=== PATIENT | female | born 1985 | race Caucasian/White ===

== ENCOUNTER 2017-12-10 21:53 | Emergency (ER) | payer OTHER ==
[~2017-12-10] VITALS: Ht 172.7 cm; Wt 74.8 kg
[~2017-12-10 21:53] MED LIST: ALLEGRA30 MG; BIRTH CONTROL; CELEXA; LOPRESSOR25 PO; NORCO 5-325 TA1 EACH PO; PENICILLIN V P500 MG PO
[2017-12-10 22:16] LABS: ABSOLUTE BASOPHILS 0.1 thou/uL (0.0-0.2); ABSOLUTE EOSINOPHILS 0.1 thou/uL (0.0-0.7); ABSOLUTE MONOCYTES 1.1 thou/uL (0.0-1.2); ABSOLUTE NEUTROPHILS 6.7 thou/uL (1.6-8.1); BASOPHILS 0.6 %; HEMATOCRIT 40.8 % (37.0-47.0); HEMOGLOBIN 13.8 gm/dL (12.0-15.0); LYMPHOCYTES 27.3 %; MCH 27.8 pg (26.0-34.0); MCHC 33.7 g/dL (28.0-37.0); MCV 82.4 fL (80.0-100.0); MONOCYTES 9.8 %; MPV 10.8 fl. (7.2-11.1); NUCLEATED RBCS 0 /100WBC; PLATELET COUNT* 264 thou/uL (150-400); POLYS 61.3 %; RBC 4.95 mil/uL (4.20-5.00); RDW-CV 13.5 % (10.5-14.5); WBC 10.9 thou/uL (4.0-11.0)
[2017-12-10 22:24] LABS: ANION GAP 8 mmol/L (7-16); BUN 15 mg/dL (7-18); CALCIUM 9.1 mg/dL (8.5-10.1); CHLORIDE 104 mmol/L (98-107); CO2 30 mmol/L (21-32); CREATININE 1.1 mg/dL (0.6-1.3); GLUCOSE 115 mg/dL (70-99); POTASSIUM 3.7 mmol/L (3.5-5.1); SODIUM 142 mmol/L (136-145)
[2017-12-10 22:31] LABS: ALBUMIN 3.9 g/dL (3.4-5.0); ALKALINE PHOSPHATASE 68 U/L (46-116); SGOT 9 U/L (15-37); SGPT 15 U/L (30-65); TOTAL BILIRUBIN 0.3 mg/dL (<0.1-1.0); TOTAL PROTEIN 7.2 g/dL (6.4-8.2); TROPONIN-I LEVEL <0.06 ng/mL (<0.06)
[2017-12-10 23:23] VITALS: BP 101/66
--- NOTE | 2017-12-12 13:05 | EKG ---
[place] [address] ELECTROCARDIOGRAM REPORT Name: TONG MORALES Room: [facility]#: [id number] Admission: 12/10/17 Attend Phys: Discharge: 12/10/17 Date of : 85 Report #: [id number] THIS REPORT FOR: //name// [facility] ED Test Date: 2017-12-10 Test Time: 23:11:01 Pat Name: TONG MORALES Department: Room: Gender: F Calf Skinner: NIKKO Feldman : 1985 Requested By: Fabiana Cordova Order Number: [id number] MD: Silvio Moya Measurements Intervals [place] Rate: 100 P: 60 DC: 143 QRS: 87 QRSD: 79 T: 48 QT: 333 QTc: 430 Interpretive Statements Sinus tachycardia Probable left atrial enlargement Compared to ECG 07/03/2017 15:23:24 No significant changes Electronically Signed On 12-12-2017 13:05:07 CDT by Silvio Moya [email or web address] <ELECTRONICALLY SIGNED> By: Silvio Moya MD, [facility] 12/12/17 1305 10 231 Silvio Moya MD, FACC /EPI
--- NOTE | 2017-12-12 13:05 | EKG ---
[place] [address] ELECTROCARDIOGRAM REPORT Name: CARMENTONG Higgins Room: [facility]#: [id number] Admission: 12/10/17 Attend Phys: Discharge: 12/10/17 Date of : [birth year] Report #: [id number] THIS REPORT FOR: //name// [facility] ED Test Date: 2017-12-10 Test Time: 22:03:29 Pat Name: TONG MORALES Department: Room: Gender: F Head Of Mobile: NOA : 1985 Requested By: Fabiana Cordova Order Number: [id number] MD: Silvio Moya Measurements Intervals [place] Rate: 224 P: 73 ID: 99 QRS: 95 QRSD: 93 T: 25 QT: 245 QTc: 473 Interpretive Statements Supraventricular tachycardia Borderline right axis deviation Low voltage, extremity leads ST depression, probably rate related Artifact in lead(s) I,II,aVR,aVF and baseline wander in lead(s) I,III,aVR,aVL,V1,V2,V5,V6 Compared to ECG 07/03/2017 15:23:24 Low QRS voltage now present ST (T wave) deviation now present Sinus tachycardia no longer present Electronically Signed On 12-12-2017 13:05:04 CDT by Silvio Moya [email or web address] <ELECTRONICALLY SIGNED> By: Silvio Moya MD, [facility] 12/12/17 1305 02 02 Silvio Moya MD, [facility] /EPI
== END 2017-12-10 23:24 | disposition home or self-care (01) ==
LOC: M.ERS 21:53
PROVIDERS: Personal Emergency Response Attendant
DX: I47.1 Supraventricular tachycardia (principal); F32.9 Major depressive disorder, single episode, unspecified; Z88.5 Allergy status to narcotic agent

== ENCOUNTER 2018-02-14 11:21 | Emergency (ER) | payer OTHER ==
[~2018-02-14] VITALS: Ht 172.7 cm; Wt 63.5 kg
[2018-02-14 11:49] LABS: ABSOLUTE BASOPHILS 0.1 thou/uL (0.0-0.2); ABSOLUTE EOSINOPHILS 0.2 thou/uL (0.0-0.7); ABSOLUTE LYMPHOCYTES 3.7 thou/uL (0.8-5.3); ABSOLUTE MONOCYTES 0.9 thou/uL (0.0-1.2); ABSOLUTE NEUTROPHILS 5.7 thou/uL (1.6-8.1); BASOPHILS 0.6 %; EOSINOPHILS 1.8 %; HEMATOCRIT 44.8 % (37.0-47.0); HEMOGLOBIN 14.6 gm/dL (12.0-15.0); LYMPHOCYTES 34.9 %; MCH 27.4 pg (26.0-34.0); MCHC 32.5 g/dL (28.0-37.0); MCV 84.3 fL (80.0-100.0); MONOCYTES 8.9 %; MPV 10.6 fl. (7.2-11.1); NUCLEATED RBCS 0 /100WBC; PLATELET COUNT* 275 thou/uL (150-400); POLYS 53.8 %; RBC 5.32 mil/uL (4.20-5.00); RDW-CV 13.3 % (10.5-14.5); WBC 10.6 thou/uL (4.0-11.0)
[2018-02-14 12:01] LABS: ANION GAP 6 mmol/L (7-16); APTT 27.1 Seconds (25.0-31.3); BUN 17 mg/dL (7-18); CALCIUM 9.4 mg/dL (8.5-10.1); CHLORIDE 105 mmol/L (98-107); CO2 28 mmol/L (21-32); CREATININE 0.9 mg/dL (0.6-1.3); GLUCOSE 114 mg/dL (70-99); POTASSIUM 4.1 mmol/L (3.5-5.1); SODIUM 139 mmol/L (136-145)
[2018-02-14 12:20] LABS: ALBUMIN 4.1 g/dL (3.4-5.0); ALKALINE PHOSPHATASE 68 U/L (46-116); CK-MB MASS 1.3 ng/mL (<0.5-3.6); LIPASE 122 U/L (73-393); MAGNESIUM 2.1 mg/dL (1.8-2.4); NT-PRO BRAIN NAT PEPTIDE 1865 pg/mL (<300); SGOT 21 U/L (15-37); SGPT 30 U/L (30-65); TOTAL BILIRUBIN 0.3 mg/dL (<0.1-1.0); TOTAL PROTEIN 7.9 g/dL (6.4-8.2); TROPONIN-I LEVEL <0.06 ng/mL (<0.06)
[2018-02-14 12:50] VITALS: BP 94/60
--- NOTE | 2018-02-15 14:59 | EKG ---
[place] [address] ELECTROCARDIOGRAM REPORT Name: TONG MORALES Room: [facility]#: [id number] Admission: 02/14/18 Attend Phys: Discharge: 02/14/18 Date of : [birth year] Report #: [id number] THIS REPORT FOR: //name// [facility] ED Test Date: 2018-02-14 Test Time: 11:27:22 Pat Name: TONG OMRALES Department: Room: Gender: F Legal Executive Assistant: Gaston PENN : 1985 Requested By: Harpal Balderas Order Number: [id number] MD: Mani Bartholomew Measurements Intervals [place] Rate: 202 P: IN: QRS: 84 QRSD: 74 T: 14 QT: 248 QTc: 455 Interpretive Statements supraventricular tachycardia septal q waves noted Repolarization abnormality, prob rate related Baseline wander in lead(s) II,aVR Compared to ECG 12/10/2017 23:11:01 rate increased Electronically Signed On 02-15-2018 14:59:18 CDT by Mani Bartholomew [email or web address] <ELECTRONICALLY SIGNED> By: Mani Bartholomew MD, [facility] 02/15/18 1459 1127 1127 Mani Bartholomew MD, [facility] /EPI
--- NOTE | 2018-02-15 15:00 | EKG ---
[place] [address] ELECTROCARDIOGRAM REPORT Name: TONG MORALES Room: [facility]#: [id number] Admission: 02/14/18 Attend Phys: Discharge: 02/14/18 Date of : [birth year] Report #: [id number] THIS REPORT FOR: //name// [facility] ED Test Date: 2018-02-14 Test Time: 11:47:41 Pat Name: TONG MORLAES Department: Room: Gender: F Fruit Cutter: Gaston PENN : 1985 Requested By: Harpal Balderas Order Number: [id number] Reading MD: Mani Bartholomew Measurements Intervals [place] Rate: 92 P: 65 MS: 137 QRS: 80 QRSD: 76 T: 45 QT: 322 QTc: 399 Interpretive Statements Sinus rhythm Compared to ECG 12/10/2017 23:11:01 Supraventricular tachycardia no longer present Electronically Signed On 02-15-2018 15:00:05 CDT by Mani Bartholomew [email or web address] <ELECTRONICALLY SIGNED> By: Mani Bartholomew MD, [facility] 02/15/18 1500 1147 1147 Mani Bartholomew MD, FACC /EPI
== END 2018-02-14 12:50 | disposition home or self-care (01) ==
LOC: M.ERS 11:21
PROVIDERS: Family Medicine
DX: I47.1 Supraventricular tachycardia (principal); F32.9 Major depressive disorder, single episode, unspecified; Z88.5 Allergy status to narcotic agent

== ENCOUNTER → 2018-10-19 | Emergency (ER) | payer OTHER ==
[~2018-10-19] VITALS: Ht 172.7 cm; Wt 74.6 kg
[2018-10-19 16:48] LABS: ABSOLUTE BASOPHILS 0.1 thou/uL (0.0-0.2); ABSOLUTE EOSINOPHILS 0.2 thou/uL (0.0-0.7); ABSOLUTE LYMPHOCYTES 2.9 thou/uL (0.8-5.3); ABSOLUTE MONOCYTES 1.2 thou/uL (0.0-1.2); ABSOLUTE NEUTROPHILS 5.4 thou/uL (1.6-8.1); BASOPHILS 0.6 %; EOSINOPHILS 1.6 %; HEMOGLOBIN 13.7 gm/dL (12.0-15.0); LYMPHOCYTES 29.7 %; MCH 27.6 pg (26.0-34.0); MCHC 33.4 g/dL (28.0-37.0); MCV 82.8 fL (80.0-100.0); MONOCYTES 12.2 %; MPV 10.6 fl. (7.2-11.1); NUCLEATED RBCS 0 /100WBC; PLATELET COUNT* 328 thou/uL (150-400); POLYS 55.9 %; RBC 4.96 mil/uL (4.20-5.00); RDW-CV 14.1 % (10.5-14.5); WBC 9.6 thou/uL (4.0-11.0)
[2018-10-19 17:08] LABS: ALKALINE PHOSPHATASE 72 U/L (46-116); ANION GAP 10 mmol/L (7-16); BUN 21 mg/dL (7-18); CALCIUM 9.2 mg/dL (8.5-10.1); CHLORIDE 106 mmol/L (98-107); CO2 28 mmol/L (21-32); CREATININE 1.2 mg/dL (0.6-1.3); GLUCOSE 84 mg/dL (70-99); POTASSIUM 3.7 mmol/L (3.5-5.1); SGOT 14 U/L (15-37); SGPT 17 U/L (30-65); SODIUM 144 mmol/L (136-145); TOTAL BILIRUBIN 0.2 mg/dL (<0.1-1.0); TOTAL PROTEIN 7.7 g/dL (6.4-8.2); TROPONIN-I LEVEL <0.06 ng/mL (<0.06)
[2018-10-19 17:25] VITALS: BP 118/51
--- NOTE | 2018-10-20 16:43 | EKG ---
[place] [address] ELECTROCARDIOGRAM REPORT Name: CARMENTONG Higgins Room: [facility]#: [id number] Admission: 10/19/18 Attend Phys: Discharge: Date of : [birth year] Report #: [id number] THIS REPORT FOR: //name// [facility] ED Test Date: 2018-10-19 Test Time: 16:24:49 Pat Name: TONG MORALES Department: Room: Gender: F Front Office Help: AMALIA : 1985 Requested By: Karo Granado Order Number: [id number] MD: Deangelo Walsh Measurements Intervals [place] Rate: 212 P: 0 [place]: 111 QRS: 96 QRSD: 78 T: 31 QT: 244 QTc: 459 Interpretive Statements Supraventricular tachycardia Anteroseptal infarct, age indeterminate possible Baseline wander in lead(s) I,III,aVR,aVL,aVF,V4,V5 Compared to ECG 02/14/2018 11:47:41 Myocardial infarct finding now present Sinus rhythm no longer present Electronically Signed On 10-20-2018 16:43:04 CDT by Deangelo Walsh [email or web address] <ELECTRONICALLY SIGNED> By: Deangelo Walsh MD, [facility] 10/20/18 1643 1624 1624 Deangelo Walsh MD, [facility] /EPI
--- NOTE | 2018-10-20 16:44 | EKG ---
[place] [address] ELECTROCARDIOGRAM REPORT Name: TONG MORALES Room: [facility]#: [id number] Admission: 10/19/18 Attend Phys: Discharge: Date of : [birth year] Report #: [id number] THIS REPORT FOR: //name// [facility] ED Test Date: 2018-10-19 Test Time: 16:39:59 Pat Name: TONG MORALES Department: Room: Gender: F Cadd Technician: AMALIA : 1985 Requested By: Fabiana Cordova Order Number: [id number] MD: Deangelo Walsh Measurements Intervals [place] Rate: 111 P: 71 [place]: 137 QRS: 86 QRSD: 77 T: 42 QT: 296 QTc: 402 Interpretive Statements Sinus tachycardia Baseline wander in lead(s) V1 Compared to ECG 02/14/2018 11:47:41 Sinus rhythm is noted Electronically Signed On 10-20-2018 16:43:48 CDT by Deangelo Walsh [email or web address] <ELECTRONICALLY SIGNED> By: Deangelo Walsh MD, [facility] 10/20/18 1643 D: [id number] 38 Deangelo Walsh MD, FACC /EPI
== END ==
LOC: M.ERS 16:16
PROVIDERS: Nurse Practitioner Family
DX: I47.1 Supraventricular tachycardia (principal); F32.9 Major depressive disorder, single episode, unspecified; Z88.5 Allergy status to narcotic agent

== ENCOUNTER 2018-10-22 17:10 | Emergency (ER) | payer OTHER ==
[~2018-10-22] VITALS: Ht 172.7 cm; Wt 79.8 kg
[2018-10-22 18:03] LABS: ABSOLUTE BASOPHILS 0.1 thou/uL (0.0-0.2); ABSOLUTE EOSINOPHILS 0.1 thou/uL (0.0-0.7); ABSOLUTE LYMPHOCYTES 2.7 thou/uL (0.8-5.3); ABSOLUTE NEUTROPHILS 5.6 thou/uL (1.6-8.1); BASOPHILS 0.7 %; EOSINOPHILS 1.3 %; HEMOGLOBIN 13.1 gm/dL (12.0-15.0); LYMPHOCYTES 28.6 %; MCH 27.5 pg (26.0-34.0); MCHC 32.7 g/dL (28.0-37.0); MCV 84.2 fL (80.0-100.0); MONOCYTES 10.6 %; MPV 11.1 fl. (7.2-11.1); NUCLEATED RBCS 0 /100WBC; PLATELET COUNT* 268 thou/uL (150-400); POLYS 58.8 %; RBC 4.76 mil/uL (4.20-5.00); RDW-CV 14.3 % (10.5-14.5); WBC 9.4 thou/uL (4.0-11.0)
[2018-10-22 18:26] LABS: ALBUMIN 3.2 g/dL (3.4-5.0); ALKALINE PHOSPHATASE 64 U/L (46-116); ANION GAP 9 mmol/L (7-16); BUN 24 mg/dL (7-18); CALCIUM 9.1 mg/dL (8.5-10.1); CHLORIDE 105 mmol/L (98-107); CO2 28 mmol/L (21-32); CREATININE 1.1 mg/dL (0.6-1.3); GLUCOSE 101 mg/dL (70-99); POTASSIUM 4.9 mmol/L (3.5-5.1); SGOT 10 U/L (15-37); SGPT 18 U/L (30-65); SODIUM 142 mmol/L (136-145); TOTAL BILIRUBIN 0.1 mg/dL (<0.1-1.0); TOTAL PROTEIN 6.7 g/dL (6.4-8.2); TROPONIN-I LEVEL <0.06 ng/mL (<0.06)
[2018-10-22 18:43] VITALS: BP 93/53
--- NOTE | 2018-10-23 11:08 | EKG ---
[place] [address] ELECTROCARDIOGRAM REPORT Name: CARMEN,TONG Higgins Room: [facility]#: [id number] Admission: 10/22/18 Attend Phys: Discharge: 10/22/18 Date of : [birth year] Report #: [id number] THIS REPORT FOR: //name// [facility] ED Test Date: 2018-10-22 Test Time: 17:21:33 Pat Name: TONG MORALES Department: Room: Gender: F Analytics Senior Manager: PAIGE : 1985 Requested By: Fabiana Cordova Order Number: [id number] MD: Mani Bartholomew Measurements Intervals [place] Rate: 69 P: 53 [place]: 80 QRS: 78 QRSD: 85 T: 61 QT: 332 QTc: 356 Interpretive Statements Sinus rhythm Short [place] interval Baseline wander in lead(s) V1,V2,V3,V4,V5,V6 Electronically Signed On 10-23-2018 11:08:39 CDT by Mani Bartholomew [email or web address] <ELECTRONICALLY SIGNED> By: Mani Bartholomew MD, [facility] 10/23/18 1108 D: [id number] 20 Mani Bartholomew MD, FACC /EPI
--- NOTE | 2018-10-23 11:08 | EKG ---
[place] [address] ELECTROCARDIOGRAM REPORT Name: CARMEN,TONG Higgins Room: [facility]#: [id number] Admission: 10/22/18 Attend Phys: Discharge: 10/22/18 Date of : [birth year] Report #: [id number] THIS REPORT FOR: //name// [facility] ED Test Date: 2018-10-22 Test Time: 17:14:09 Pat Name: TONG MORALES Department: Room: Gender: F Civil Rights Investigator: PAIGE : 1985 Requested By: Fabiana Cordova Order Number: [id number] MD: Mani Bartholomew Measurements Intervals [place] Rate: 211 P: 104 AR: 129 QRS: 88 QRSD: 72 T: 19 QT: 242 QTc: 454 Interpretive Statements Supraventricular tachycardia Compared to ECG 10/19/2018 16:39:59 Sinus tachycardia no longer present Electronically Signed On 10-23-2018 11:08:11 CDT by Mani Bartholomew [email or web address] <ELECTRONICALLY SIGNED> By: Mani Bartholomew MD, [facility] 10/23/18 1108 1714 13 Mani Bartholomew MD, FACC /EPI
== END 2018-10-22 18:43 | disposition home or self-care (01) ==
LOC: M.ERS 17:10
PROVIDERS: Personal Emergency Response Attendant
DX: I47.1 Supraventricular tachycardia (principal); F32.9 Major depressive disorder, single episode, unspecified; F17.210 Nicotine dependence, cigarettes, uncomplicated; Z88.6 Allergy status to analgesic agent

== ENCOUNTER 2019-05-08 00:31 | Emergency (ER) | payer OTHER ==
[~2019-05-08] VITALS: Ht 170.2 cm; Wt 77.8 kg
[2019-05-08 00:58] LABS: ABSOLUTE BASOPHILS 0.1 thou/uL (0.0-0.2); ABSOLUTE EOSINOPHILS 0.2 thou/uL (0.0-0.7); ABSOLUTE LYMPHOCYTES 2.6 thou/uL (0.8-5.3); ABSOLUTE MONOCYTES 0.9 thou/uL (0.0-1.2); ABSOLUTE NEUTROPHILS 6.1 thou/uL (1.6-8.1); BASOPHILS 0.5 %; EOSINOPHILS 1.7 %; HEMATOCRIT 38.2 % (37.0-47.0); LYMPHOCYTES 26.6 %; MCH 28.1 pg (26.0-34.0); MCV 82.8 fL (80.0-100.0); MONOCYTES 8.8 %; MPV 10.7 fl. (7.2-11.1); NUCLEATED RBCS 0 /100WBC; PLATELET COUNT* 271 thou/uL (150-400); POLYS 62.4 %; RBC 4.61 mil/uL (4.20-5.00); RDW-CV 13.9 % (10.5-14.5); WBC 9.8 thou/uL (4.0-11.0)
[2019-05-08 01:05] LABS: ANION GAP 12 mmol/L (7-16); BUN 19 mg/dL (7-18); CHLORIDE 102 mmol/L (98-107); CO2 25 mmol/L (21-32); GLUCOSE 128 mg/dL (70-99); POTASSIUM 3.7 mmol/L (3.5-5.1); SODIUM 139 mmol/L (136-145)
[2019-05-08 01:17] LABS: ALBUMIN 4.2 g/dL (3.4-5.0); ALKALINE PHOSPHATASE 68 U/L (46-116); CK-MB MASS 1.1 ng/mL (<0.5-3.6); LIPASE 82 U/L (73-393); MAGNESIUM 1.9 mg/dL (1.8-2.4); NT-PRO BRAIN NAT PEPTIDE 69 pg/mL (<300); SGOT 19 U/L (15-37); SGPT 29 U/L (30-65); TOTAL BILIRUBIN 0.2 mg/dL (<0.1-1.0); TOTAL PROTEIN 7.9 g/dL (6.4-8.2); TROPONIN-I LEVEL <0.06 ng/mL (<0.06)
[2019-05-08 01:24] LABS: APTT 26.8 Seconds (25.0-31.3); PROTIME 10.1 Seconds (9.20-11.50)
[2019-05-08 01:33] VITALS: BP 127/85
--- NOTE | 2019-05-09 16:13 | EKG ---
[place] [address] ELECTROCARDIOGRAM REPORT Name: CARMENTONG Higgins Room: [facility]#: [id number] Admission: 05/08/19 Attend Phys: Discharge: 05/08/19 Date of : [birth year] Report #: [id number] THIS REPORT FOR: //name// [facility] ED Test Date: 2019-05-08 Test Time: 00:32:29 Pat Name: TONG MORALES Department: Room: Gender: F Land Appraiser: : 1985 Requested By: Harpal Balderas Order Number: [id number] MD: Deangelo Walsh Measurements Intervals [place] Rate: 214 P: 92 [place]: 113 QRS: 83 QRSD: 84 T: 20 QT: 248 QTc: 469 Interpretive Statements Supraventricular tachycardia ST depression, probably rate related Artifact in lead(s) I,II,III,aVR,aVL Compared to ECG 10/22/2018 17:21:33 SVT as noted Electronically Signed On 05-09-2019 16:13:08 CDT by Deangelo Walsh [email or web address] <ELECTRONICALLY SIGNED> By: Deangelo Walsh MD, [facility] 05/09/19 1613 0032 0032 Deangelo Walsh MD, [facility] /EPI
--- NOTE | 2019-05-09 16:14 | EKG ---
[place] [address] ELECTROCARDIOGRAM REPORT Name: CARMENTONG Higgins Room: [facility]#: [id number] Admission: 05/08/19 Attend Phys: Discharge: 05/08/19 Date of : [birth year] Report #: [id number] THIS REPORT FOR: //name// [facility] ED Test Date: 2019-05-08 Test Time: 00:42:49 Pat Name: TONG MORALES Department: Room: Gender: F Director Online Marketing: SONYA : 1985 Requested By: Harpal Balderas Order Number: [id number] Reading : Deangelo Walsh Measurements Intervals [place] Rate: 119 P: 69 [place]: 144 QRS: 70 QRSD: 79 T: 38 QT: 302 QTc: 425 Interpretive Statements Sinus tachycardia Compared to ECG 10/22/2018 17:21:33 SVT has reverted to mild sinus tachycardia Electronically Signed On 05-09-2019 16:13:50 CDT by Deangelo Walsh [email or web address] <ELECTRONICALLY SIGNED> By: Deangelo Walsh MD, [facility] 05/09/19 1613 0042 004 Deangelo Walsh MD, FACC /EPI
== END 2019-05-08 01:34 | disposition home or self-care (01) ==
LOC: M.ERS 00:31
PROVIDERS: Family Medicine
DX: I47.1 Supraventricular tachycardia (principal); F32.9 Major depressive disorder, single episode, unspecified; Z88.5 Allergy status to narcotic agent

== ENCOUNTER 2019-09-17 19:11 | Emergency (ER) | payer OTHER ==
[~2019-09-17] VITALS: Ht 175.3 cm; Wt 74.8 kg
[2019-09-17 19:46] LABS: ABSOLUTE EOSINOPHILS 0.3 thou/uL (0.0-0.7); ABSOLUTE LYMPHOCYTES 3.3 thou/uL (0.8-5.3); ABSOLUTE MONOCYTES 1.7 thou/uL (0.0-1.2); ABSOLUTE NEUTROPHILS 5.6 thou/uL (1.6-8.1); BASOPHILS 0.4 %; CALCIUM 8.6 mg/dL (8.5-10.1); CREATININE 1.1 mg/dL (0.6-1.3); EOSINOPHILS 2.7 %; HEMATOCRIT 39.9 % (37.0-47.0); HEMOGLOBIN 13.3 gm/dL (12.0-15.0); LYMPHOCYTES 30.1 %; MCH 26.9 pg (26.0-34.0); MCHC 33.2 g/dL (28.0-37.0); MCV 81.1 fL (80.0-100.0); MONOCYTES 15.8 %; MPV 9.8 fl. (7.2-11.1); NUCLEATED RBCS 0 /100WBC; PLATELET COUNT* 356 thou/uL (150-400); POTASSIUM 3.9 mmol/L (3.5-5.1); RBC 4.93 mil/uL (4.20-5.00); RDW-CV 15.5 % (10.5-14.5)
[2019-09-17 19:50] LABS: ALBUMIN 3.7 g/dL (3.4-5.0); TOTAL BILIRUBIN 0.1 mg/dL (<0.1-1.0); TOTAL PROTEIN 7.8 g/dL (6.4-8.2)
[2019-09-17 20:30] VITALS: BP 108/72
--- NOTE | 2019-09-18 15:07 | EKG ---
[place] [address] ELECTROCARDIOGRAM REPORT Name: TONG MORALES Room: [facility]#: [id number] Admission: 09/17/19 Attend Phys: Discharge: 09/17/19 Date of : [birth year] Date of Service: 09/17/191916 Report #: [id number] THIS REPORT FOR: //name// [facility] ED Test Date: 2019-09-17 Test Time: 19:17:41 Pat Name: TONG MORALES Department: Room: Gender: Bacteriologist Food: ROSAMARIA : 1985 Requested By: Asaf Bernstein Order Number: [id number] MD: Eder Rosado Measurements Intervals [place] Rate: 210 P: 181 [place]: 119 QRS: 85 QRSD: 85 T: 1 QT: 245 QTc: 458 Interpretive Statements Supraventricular tachycardia ST depression, probably rate related Artifact in lead(s) I,II,III,aVR,aVL,aVF and baseline wander in lead(s) V5 Compared to ECG 05/31/2019 02:12:26 ST (T wave) deviation now present Sinus tachycardia no longer present Electronically Signed On 09-18-2019 15:06:37 ORTHO RN by Eder Rosado [email or web address] <ELECTRONICALLY SIGNED> By: Michael Rosado MD, [facility] 09/18/19 1506 16 16 Michael Rosado MD, [facility] /EPI
--- NOTE | 2019-09-19 16:41 | EKG ---
[place] [address] ELECTROCARDIOGRAM REPORT Name: TONG MORALES Room: [facility]#: [id number] Admission: 09/17/19 Attend Phys: Discharge: 09/17/19 Date of : [birth year] Date of Service: 09/17/191931 Report #: [id number] THIS REPORT FOR: //name// [facility] ED Test Date: 2019-09-17 Test Time: 19:32:54 Pat Name: TONG MORALES Department: Room: Gender: F Wool Dyer: ROSAMARIA : 1985 Requested By: Asaf Bernstein Order Number: [id number] MD: Deangelo Walsh Measurements Intervals [place] Rate: 106 P: 68 [place]: 145 QRS: 78 QRSD: 78 T: 35 QT: 302 QTc: 401 Interpretive Statements Sinus tachycardia Compared to ECG 09/17/2019 19:17:41 Supraventricular tachycardia no longer present ST (T wave) deviation no longer present Electronically Signed On 09-19-2019 16:40:36 CASE ASSEMBLER by Deangelo Walsh [email or web address] <ELECTRONICALLY SIGNED> By: Deangelo Walsh MD, FACC 09/19/19 1640 31 31 Deangelo Walsh MD, [facility] /EPI
== END 2019-09-17 20:30 | disposition home or self-care (01) ==
LOC: M.ERS 19:11
PROVIDERS: Emergency Medicine Emergency Medical Services
DX: I47.1 Supraventricular tachycardia (principal); F32.9 Major depressive disorder, single episode, unspecified; F17.210 Nicotine dependence, cigarettes, uncomplicated; Z88.5 Allergy status to narcotic agent